=== PATIENT | female | born 1985 | race Caucasian/White ===

== ENCOUNTER 2020-05-02 04:22 | Emergency (ER) | payer OTHER ==
[~2020-05-02] VITALS: Ht 162.6 cm; Wt 63.5 kg
[2020-05-02] MEDS ORDERED: DONNATAL/LIDOCAINE/MAALOX 30 ML SUSP PO ONE (04:45)
[2020-05-02] MEDS ORDERED: MAGNESIUM/ALUMINUM/SIMETHICONE 30 ML UDC ONE (04:53)
[2020-05-02] MEDS ORDERED: LIDOCAINE VISC 2% SOLN 15 ML UDC ONE (04:53)
[2020-05-02] MEDS ORDERED: BELLADONNA ALK/PHENOBARBITAL 5 ML UDC ONE (04:53)
[2020-05-02] MEDS ORDERED: LIDOCAINE VISC 2% SOLN 15 ML UDC PO ONE (05:00)
[2020-05-02] MEDS ORDERED: MAGNESIUM/ALUMINUM/SIMETHICONE 30 ML UDC PO ONE (05:00)
[2020-05-02] MEDS ORDERED: BELLADONNA ALK/PHENOBARBITAL 5 ML UDC PO ONE (05:00)
== END 2020-05-02 05:06 | disposition home or self-care (01) ==
LOC: FSED 04:35
DX: R10.13 Epigastric pain (principal); K21.9 Gastro-esophageal reflux disease without esophagitis; E03.9 Hypothyroidism, unspecified
CPT/HCPCS: 99282

== ENCOUNTER 2021-01-17 09:14 | Emergency (ER) | payer OTHER ==
[~2021-01-17] VITALS: Ht 162.6 cm; Wt 60.3 kg
[2021-01-17] MEDS ORDERED: NEOMYC-POLYM-DEX5 ML OT (09:49)
== END 2021-01-17 10:12 | disposition home or self-care (01) ==
LOC: FSED 09:20
DX: H60.91 Unspecified otitis externa, right ear (principal)
CPT/HCPCS: 99282

== ENCOUNTER 2021-11-14 09:57 | Emergency (ER) | payer OTHER ==
[~2021-11-14] VITALS: Ht 162.6 cm; Wt 61.7 kg
[~2021-11-14 09:57] MED LIST: NEOMYC-POLYM-DEX5 ML OT
[2021-11-14] MEDS ORDERED: ACETAMINOPHEN 325 MG TAB PO ONE (10:30)
[2021-11-14] MEDS ORDERED: LEVOTHYROXINE75 MCG PO (10:30)
[2021-11-14] MEDS ORDERED: ACETAMINOPHEN 325 MG TAB ONE (10:50)
[2021-11-14] MEDS ORDERED: BENZONATATE200 MG PO (11:26)
== END 2021-11-14 11:34 | disposition home or self-care (01) ==
LOC: FSED 10:15
DX: R50.9 Fever, unspecified (principal); B34.9 Viral infection, unspecified; R07.0 Pain in throat
CPT/HCPCS: 83518; 87400; 99283